=== PATIENT | male | born 1995 | race Caucasian/White ===

== ENCOUNTER → 2022-02-04 15:01 | Outpatient (CLI) | payer OTHER, SELFPAY ==
--- NOTE | 2022-02-04 15:03 | DI.ECHO.S_ITS ---
[facility]+ [facility] +---------+ : : [address] [place] : : : : [id number] : : : : Phone: [phone]+ Echocardiogram Report + + :Name: VIDHI OLMOS Study Date: 02/04/2022 Height: 73 in : :[facility] ReadingLocation: Weight: 298 lb : : Gender: Male BSA: 2.5 m2 : :: 1995 Age: 26 yrs BP: 127/87 mmHg: :Reason For Study: ATRIAL FIBRILLATION : :Ordering Physician: STEWART, : :MARIVEL Performed By: Michelle Valerio : :Referring: MARIVEL WILLIAM : + + Interpretation Summary Normal echocardiogram Procedure: A two-dimensional transthoracic echocardiogram with color flow and Doppler was performed. The study quality was technically adequate. A contrast injection of Definity was performed to improve assessment of LV function. There is no prior echocardiogram noted for this patient. The patient was in sinus rhythm with heart rates between 64-75 bpm during the exam. Left Ventricle: The left ventricle is normal in size and wall thickness. The ejection fraction is estimated to be 60-65%. Diastolic parameters suggest probable normal left ventricular diastolic function and normal filling pressures. Right Ventricle: The right ventricle is at the upper limits of normal in size. The right ventricular systolic function is normal. Atria: The left atrial size is normal. Right atrial size is normal. There is no Doppler evidence for an interatrial shunt. Mitral Valve: The mitral valve is normal in structure and function. There is no mitral regurgitation. Aortic Valve: The aortic valve is trileaflet. The aortic valve opens well. There is no aortic valve stenosis. No aortic regurgitation is present. Tricuspid Valve: The tricuspid valve is normal in structure and function. No tricuspid regurgitation. Pulmonic Valve: The pulmonic valve leaflets are thin and pliable; valve motion is normal. There is no pulmonic valvular regurgitation. Great Vessels: The aortic root is normal size. The dimensions of the ascending aorta are normal. The inferior vena cava was not visualized. Pericardium/ Pleura There is no pericardial effusion. There is no pleural effusion. MMode/2D Measurements & Calculations LVIDd: 5.5 cm LVOT diam: 2.2 cm LVIDs: 3.9 cm Ao root diam: 3.0 cm FS: 28.8 % asc Aorta Diam: 2.7 cm EPSS: 0.79 cm Ao Arch Diam (Prox Trans): 2.8 cm IVSd: 0.99 cm LVPWd: 1.0 cm LV alva. diameter/BSA (cm/m^2): 2.2 LV sys. diameter/BSA (cm/m^2): 1.5 LA A2 area: 18.3 cm2 RA long axis: 5.3 cm LA A4 area: 18.1 cm2 RA area: 18.5 cm2 LA length (vol): 5.5 cm RA vol: 54.6 ml LA vol: 50.7 ml RA : 21.4 ml/m2 LA vol index: 19.9 ml/m2 RVD1 (basal): 4.2 cm RVD2 (mid): 3.4 cm TAPSE: 2.0 cm Doppler Measurements & Calculations Ao V2 max: 132.0 cm/sec LVOT Max Helder: 98.4 cm/sec Ao V2 mean: 91.2 cm/sec LV V1 max P.9 mmHg Ao max P.0 mmHg LV V1 VTI: 17.3 cm Ao mean P.8 mmHg HUSSEIN(I,D): 2.9 cm2 Ao V2 VTI: 23.6 cm HUSSEIN(V,D): 2.9 cm2 sev ratio: 0.73 HUSSEIN indexed to BSA (cm^2/m^2): 1.1 MV E max helder: 67.8 cm/sec PA V2 max: 136.5 cm/sec MV A max helder: 56.5 cm/sec PA V2 mean: 85.9 cm/sec MV E/A: 1.2 PA mean P.6 mmHg Med Peak E' Helder: 8.9 cm/sec PA pr(Accel): 39.6 mmHg E/E' med: 7.6 Lat Peak E' Helder: 14.9 cm/sec E/E' lat: 4.5 E/e' average: 6.1 MV dec time: 0.16 sec SV(LVOT): 67.9 ml Reading Physician:[email or web address]
== END ==
PROVIDERS: Referring Provider Student in an Organized Health Care Education/Training Program; Visit Provider Student in an Organized Health Care Education/Training Program
DX: I48.0 Paroxysmal atrial fibrillation (principal)
CPT/HCPCS: 93306; Q9957